=== PATIENT | female | born 1965 | race African-American/Black ===

== ENCOUNTER 2024-09-07 15:49 | Emergency (ER) | payer MEDICAID ==
[~2024-09-07] VITALS: Ht 165.1 cm; Wt 70.0 kg
[2024-09-07 15:52] VITALS: BP 134/68; PULSE 58; RESP 16; TEMP 98; O2SAT 100
== END 2024-09-07 18:59 | disposition home or self-care (01) ==
LOC: ER 15:49
DX: R42 Dizziness and giddiness (principal)
CPT/HCPCS: 82962; 93005; 99283

== ENCOUNTER 2024-09-14 10:16 | Emergency (ER) | payer MEDICAID ==
[~2024-09-14] VITALS: Ht 167.6 cm; Wt 85.0 kg
[2024-09-14 10:51] VITALS: O2SAT 100
[2024-09-14] MEDS ORDERED: KETOROLAC 30MG/ML VIAL IM STA (12:07)
[2024-09-14] MEDS ORDERED: HYDROCODONE/ACETAMINOPHEN 5/325MG TABLET PO STA (12:07)
[2024-09-14] MEDS ORDERED: NAPR-681 PO (14:39)
[2024-09-14] MEDS: KETOROLAC 30MG/ML VIAL IM NR (15:24)
[2024-09-14] MEDS: HYDROCODONE/ACETAMINOPHEN 5/325MG TABLET PO NR (15:25)
[2024-09-14 16:30] VITALS: BP 124/67; PULSE 81; RESP 16; TEMP 36.72516; O2SAT 100
== END 2024-09-14 16:29 | disposition home or self-care (01) ==
LOC: ER 10:16
DX: S60.222A Contusion of left hand, initial encounter (principal); S00.93XA Contusion of unspecified part of head, initial encounter; W10.9XXA Fall (on) (from) unspecified stairs and steps, initial encounter; Y93.89 Activity, other specified; Y92.89 Other specified places as the place of occurrence of the external cause; Y99.9 Unspecified external cause status
CPT/HCPCS: 99285; 70450; 72100; 73130; 72125; 96372; J1885